=== PATIENT | female | born 1940 ===

== ENCOUNTER 2016-11-16 06:56 | Day surgery (SDC) | payer MEDICARE, MEDICAID ==
[2016-10-17 12:04] VITALS: BMI 31.1
[~2016-11-16 06:56] MED LIST: Lactated Ringer's 500 ML IV ONE; Phenylephrine 2.5% Opht Soln OD SCH; Tropicamide 1% Opht SOLUTION OD SCH
[2016-11-16] MEDS ORDERED: Tropicamide 1% Opht SOLUTION OD SCH (07:30)
[2016-11-16] MEDS ORDERED: Phenylephrine 2.5% Opht Soln OD SCH (07:45)
[2016-11-16] MEDS ORDERED: Lactated Ringer's 1,000 ML IV ONE (07:50)
[2016-11-16] MEDS: Tetracaine 0.5% Ophth (OR ONLY) ONE ×2 (08:15→08:40)
[2016-11-16] MEDS: Hyaluronidase Human, Recombi 150 U/ML VIAL ONE ×2 (08:15→08:45)
[2016-11-16] MEDS: Carbachol 0.01% IO ONE ×2 (08:16→08:53)
[2016-11-16] MEDS: Lidocaine 2% Inj (20ml) ONE ×2 (08:16→08:45)
[2016-11-16] MEDS: Povidone Iodine Ophthalmic 5% Soln ONE ×2 (08:16→08:46)
[2016-11-16] MEDS: Chondroitin/Hyaluronate Opth Syringe KIT (0.55 ml-0.5 ml) IO ONE ×2 (08:17→08:53)
[2016-11-16] MEDS: Tobramycin/Dexamethasone OPHT OINT ONE ×2 (08:17→08:53)
[2016-11-16] MEDS ORDERED: Midazolam 2 MG/2 ML VIAL ONE ×2 (08:45→09:28)
[2016-11-16] MEDS ORDERED: Propofol 10 mg/ml Inj (20 ML) ONE ×2 (08:45→09:32)
[2016-11-16] MEDS ORDERED: Lidocaine Hydrochloride 5 ML INJ ONE (08:46)
[2016-11-16 09:50] VITALS: O2SAT 97
[2016-11-16 10:59] VITALS: BP 145/75; PULSE 82; RESP 19; TEMP 97.3
--- NOTE | 2016-11-16 20:28 | OP ---
PROCEDURE DATE: 11/16/2016 PREOPERATIVE DIAGNOSIS: Mature cataract, right eye. POSTOPERATIVE DIAGNOSIS: Mature cataract, right eye. OPERATIVE PROCEDURE: Cataract extraction with lens implant, right eye. SURGEON: Dr. Rojelio Walton ANESTHESIA: Retrobulbar block. COMPLICATIONS: None. ESTIMATED BLOOD LOSS: 0 mL PROCEDURE: The patient was brought to the operating room and properly identified. Anesthesia staff administered intravenous sedation and retrobulbar block was given to the surgical eye. The patient was then prepped and draped in the usual sterile fashion. Attention was turned to the surgical eye. A lid speculum was placed into interpalpebral fissure. Sitting temporally, two paracentesis incisions were made. The anterior chamber was filled with viscoelastic and a triplanar clear corneal incision was made. Using a cystitome, anterior capsular leaflet was created. Utrata forceps were used to create a continuous curvilinear capsulorrhexis. Balanced salt solution on a cannula was used to hydrodissect and hydrodelineate the lens. The lens was then phacoemulsified with no complications. Automated irrigation and aspiration was used to remove the cortex. Viscoelastic was used to deepen the anterior chamber. The lens was placed in the capsular bag. Automated irrigation and aspiration was used to remove the viscoelastic. The anterior chamber was filled with Miochol. The wounds were hydrated with balanced salt solution. There was noted to be no leak at the end of the case and the lens was well positioned. The lid speculum was removed. The eye was given antibiotics and steroids and covered with a patch and shield. The patient was returned to the recovery room in stable condition. Rojelio Walton MD
== END 2016-11-16 10:20 | disposition home or self-care (01) ==
LOC: C.SDS 06:56
PROVIDERS: ATTEND Ophthalmology
DX: H26.9 Unspecified cataract (principal)
CPT/HCPCS: 66984; 82948; J2250; J2704; J3470; J7120

== ENCOUNTER 2016-12-28 06:13 | Day surgery (SDC) | payer MEDICARE, MEDICAID ==
[2016-10-17 12:09] VITALS: BMI 31.1
[~2016-12-28 06:13] MED LIST changes: +Carbachol 0.01% IO ONE; +Chondroitin/Hyaluronate Opth Syringe KIT (0.55 ml-0.5 ml) IO ONE; +Hyaluronidase Human, Recombi 150 U/ML VIAL ONE; +Lidocaine 2% Inj (20ml) ONE; -Phenylephrine 2.5% Opht Soln OD SCH; +Phenylephrine 2.5% Opht Soln OS SCH; +Povidone Iodine Ophthalmic 5% Soln ONE; +Tetracaine 0.5% Ophth (OR ONLY) ONE; +Tobramycin/Dexamethasone OPHT OINT ONE; -Tropicamide 1% Opht SOLUTION OD SCH; +Tropicamide 1% Opht SOLUTION OS SCH
[2016-12-28] MEDS ORDERED: Phenylephrine 2.5% Opht Soln OS SCH (06:45)
[2016-12-28] MEDS ORDERED: Tropicamide 1% Opht SOLUTION OS SCH (06:45)
[2016-12-28] MEDS ORDERED: Lactated Ringer's 500 ML IV ONE (06:55)
[2016-12-28] MEDS ORDERED: Povidone Iodine Ophthalmic 5% Soln ONE (07:30)
[2016-12-28] MEDS ORDERED: Tobramycin/Dexamethasone OPHT OINT ONE (07:30)
[2016-12-28] MEDS ORDERED: Lidocaine 2% Inj (20ml) ONE (07:30)
[2016-12-28] MEDS ORDERED: Carbachol 0.01% IO ONE (07:30)
[2016-12-28] MEDS ORDERED: Tetracaine 0.5% Ophth (OR ONLY) ONE (07:30)
[2016-12-28] MEDS ORDERED: Chondroitin/Hyaluronate Opth Syringe KIT (0.55 ml-0.5 ml) IO ONE (07:31)
[2016-12-28] MEDS ORDERED: Hyaluronidase Human, Recombi 150 U/ML VIAL ONE (07:31)
[2016-12-28] MEDS ORDERED: Midazolam 2 MG/2 ML VIAL ONE (07:46)
[2016-12-28] MEDS ORDERED: Propofol 10 mg/ml Inj (20 ML) ONE (07:46)
[2016-12-28 08:59] VITALS: O2SAT 99
[2016-12-28 11:16] VITALS: BP 150/69; PULSE 67; RESP 20; TEMP 97.8
--- NOTE | 2016-12-28 19:15 | OP ---
PROCEDURE DATE: 12/28/2016 PREOPERATIVE DIAGNOSIS: Nuclear mature cataract, left eye. POSTOPERATIVE DIAGNOSIS: Nuclear mature cataract, left eye. OPERATIVE PROCEDURE: Cataract extraction with lens implant, left eye. ATTENDING SURGEON: Rojelio Walton MD. TYPE OF ANESTHESIA: Retrobulbar block. COMPLICATIONS: None. ESTIMATED BLOOD LOSS: 0 mL. DESCRIPTION OF PROCEDURE: The patient was brought to the operating room, appropriately identified. Anesthesia gave IV sedation. A retrobulbar block was given to the surgical eye. The patient was prepped and draped in a usual sterile fashion sitting temporally.. Two paracentesis incisions were made. The anterior chamber was deepen using viscoelastic. Once this was complete, a triplanar corneal incision was then made. Using a cystotome, an anterior capsular leaflet was then created. A continuous curvilinear capsulorhexis was created with Utrata forceps. Once this was done, hydrodissection and hydrodelineation was completed with BSS solution. The lens was then taken outside with no complications. Automated BARTOLO was used to remove the cortex. The capsular bag was then filled with viscoelastic. An artificial implant was then placed in the eye. Automated BARTOLO was then used to remove the remaining viscoelastic. The wounds were tested to ensure that they were sealed. The anterior chamber was deepened with BSS solution. Topical antibiotics and steroids were then given. The eye was covered by soft patch and shield. The patient returned to recovery room in stable condition. Rojelio Walton MD
== END 2016-12-28 09:49 | disposition home or self-care (01) ==
LOC: C.SDS 06:13
PROVIDERS: ATTEND Ophthalmology
DX: H25.12 Age-related nuclear cataract, left eye (principal); E11.9 Type 2 diabetes mellitus without complications; I10 Essential (primary) hypertension; E03.9 Hypothyroidism, unspecified
CPT/HCPCS: 66983; 82948; J2250; J2704; J3470; J7120; V2632